=== PATIENT | male | born 2000 | race Hispanic/Latino ===

== ENCOUNTER 2021-10-31 11:16 | Emergency (ER) | payer OTHER ==
[~2021-10-31] VITALS: Ht 172.7 cm; Wt 70.0 kg
[2021-10-31 11:45] VITALS: BP 117/68
[2021-10-31 12:00] VITALS: BP 112/70
[2021-10-31 12:15] VITALS: BP 118/75
[2021-10-31 12:30] VITALS: BP 113/73
[2021-10-31] MEDS ORDERED: CORTISPORIN OTI10 M2 AU (12:34)
[2021-10-31] MEDS ORDERED: AMOXICILLIN500 MG PO (12:34)
[2021-10-31 12:42] VITALS: BP 118/75
== END 2021-10-31 12:49 | disposition home or self-care (01) | DRG 156 ==
LOC: ED 11:16
DX: H60.93 Unspecified otitis externa, bilateral (principal)